=== PATIENT | female | born 1990 | race Caucasian/White ===

== ENCOUNTER → 2017-01-24 | Outpatient (CLI) | payer OTHER ==
--- NOTE | 2017-01-24 17:27 | Diagnostic Imaging Report ---
INDICATION: survey. TECHNIQUE: Multiple real-time grayscale images were obtained over the gravid uterus. COMPARISON: None. FINDINGS: Amniotic fluid volume is appropriate. Placenta is located along the left lateral aspect of the uterus without evidence of previa. cardiac motion measured 135 beats per minute. The intracranial contents appear unremarkable without evidence of ventriculomegaly. Four-chamber view of the heart is unremarkable. Stomach bubble is demonstrated. There is a normal cord insertion. There is no evidence of hydronephrosis. Urinary bladder is unremarkable. There is a three-vessel cord. The limited views of the spine appear unremarkable, but there is incomplete assessment of the spine due to positioning. IMPRESSION: 1. Single live intrauterine gestation estimated at 19 weeks 6 days gestational age based on today's measurements. This correlates with prior sonogram of December 18, 2015 demonstrating appropriate interval growth. Cardiac motion is normal. Amniotic fluid is normal. Today's survey demonstrates no anatomic abnormality, though there was a somewhat limited assessment of the spine. Biometrical measurements are as follows: Biparietal 4.6 cm, age 20 weeks 0 days. Head circumference 17.2 cm, age 19 weeks 6 days. Abdominal circumference 15.2 cm, age 20 weeks 3 days. Femur length 3.0 cm, age 19 weeks 1 days. Sonographic estimate age: 19 weeks 6 days. Sonographic estimated date of delivery: 06/14/16. Estimated Weight: 313 gm (+/- 46 gm). LMP percentile: 41%. heart rate: 135 beats per minute. number: 1 of 1. Dictated by: Dictated on workstation # [id number]
== END ==
LOC: RAD 09:45
PROVIDERS: ATTEND Obstetrics & Gynecology
DX: Z36 Encounter for antenatal screening of mother (principal); Z3A.19 19 weeks gestation of pregnancy
CPT/HCPCS: 76805

== ENCOUNTER → 2017-05-21 | Outpatient (CLI) | payer OTHER ==
--- NOTE | 2017-05-21 14:51 | Diagnostic Imaging Report ---
INDICATION: Small for gestational age. TECHNIQUE: Multiple Real-time grayscale images were obtained over the gravid uterus. COMPARISON: 04/04/2017. FINDINGS: The heart rate is 128 BPM. The placenta is posterior with no placenta previa. The total amniotic fluid index is 5.4 cm. The presentation is cephalic. The cervix is obscured by the head. The maternal adnexa are obscured by the gravid uterus. MEASUREMENTS: The growth parameters are: Biparietal diameter: 36 weeks and 6 days. Head circumference: 36 weeks and 2 days. Abdominal circumference: 35 weeks and 1 day. Femur length: 35 weeks and 3 days. These average at: 36 weeks and 0 days. This compares to 36 weeks and 4 days gestational age based on the ALEX of 06/14/2017 which matches the earliest ultrasound dating. IMPRESSION: Borderline oligohydramnios. The results were called to Laura at Dr. Butler's office regarding the low amniotic fluid index by the computer technologist who performed the exam. Dictated by: Dictated on workstation # [id number]
== END ==
LOC: RAD 09:52
PROVIDERS: ATTEND Obstetrics & Gynecology
DX: O36.5930 Maternal care for other known or suspected poor fetal growth, third trimester, not applicable or unspecified (principal); O26.843 Uterine size-date discrepancy, third trimester; Z3A.36 36 weeks gestation of pregnancy
CPT/HCPCS: 76816

== ENCOUNTER → 2017-05-23 | Outpatient (CLI) | payer OTHER ==
--- NOTE | 2017-05-23 12:50 | Diagnostic Imaging Report ---
INDICATION: O26.849 SIGNIFICANT DISCREPANCY COMPARISON: 05/21/2017. Biophysical Profile Score: Movement: 2 Breathin Tone: 2 Fluid: 2 Total: 12/31 Heart Rate: 139 BPM Presentation is cephalic. Placenta is located on the right and superiorly. JOHN is 8.8cm. The single largest vertical pocket is 3.1 cm. IMPRESSION: Normal Biophysical Profile Score. Dictated by: Dictated on workstation # [id number]
== END ==
LOC: RAD 08:57
PROVIDERS: ATTEND Obstetrics & Gynecology
DX: O26.843 Uterine size-date discrepancy, third trimester (principal)
CPT/HCPCS: 76819

== ENCOUNTER → 2018-12-30 | Outpatient (CLI) | payer OTHER ==
[~2018-12-30] MED LIST: ACHD5005 PO; DOCU100C37 PO; FERR325T18 PO; IBUP-1773 PO
--- NOTE | 2018-12-30 14:12 | Diagnostic Imaging Report ---
INDICATION: Abnormal AFP screening. TECHNIQUE: Multiple real-time grayscale images were obtained over the gravid uterus. COMPARISON: None. FINDINGS: There is a single live fetus in transverse presentation. heart rate was recorded at 146 beats per minute. Placenta is anterior and fundal. Amniotic fluid volume appears normal with an amniotic fluid index of 11.5 cm. No complicating features are seen. Biometrical measurements are as follows: Biparietal 5.81 cm, age 23 weeks 6 days. Head circumference 21.26 cm, age 23 weeks 3 days. Abdominal circumference 20.52 cm, age 25 weeks 1 days. Femur length 4.05 cm, age 23 weeks 1 days. Sonographic estimate age: 24 weeks 0 days. Sonographic estimated date of delivery: 04/21/19. Estimated Weight: 664 gm (+/- 97 gm). LMP percentile: 55%. heart rate: 146 beats per minute. number: 1 of 1. IMPRESSION: Single live IUP at 24 weeks 0 days gestational age. Estimated date of confinement sonographically is 04/21/2019. Dictated by: Dictated on workstation # [id number]
== END ==
LOC: RAD 10:20
PROVIDERS: ATTEND Obstetrics & Gynecology
DX: O28.0 Abnormal hematological finding on antenatal screening of mother (principal); Z3A.24 24 weeks gestation of pregnancy
CPT/HCPCS: 76805

== ENCOUNTER → 2019-01-27 | Outpatient (CLI) | payer OTHER ==
--- NOTE | 2019-01-27 12:21 | Diagnostic Imaging Report ---
INDICATION: Followup growth and amniotic fluid index. TECHNIQUE: Multiple Real-time grayscale images were obtained over the gravid uterus. COMPARISON: 12/30/2018. FINDINGS: The previous OB ultrasound exam of 12/30/2018 noted a single live fetus at approximately 24 weeks gestation. On this study, the fetus is again evident. The fetus is cephalic in presentation. heart motion was noted and a rate of 138 BPM was recorded. A complete survey was not obtained but there were no obvious abnormality identified. The placenta is anterior and there is no previa. The amniotic fluid index is 13.05 (normal 8 to 22 cm). The growth parameters are fairly uniform and have progressed as expected since the prior exam. The cervix was identified and measures 3.8 cm in length. Biometrical measurements are as follows: Biparietal 7.08 cm, age 28 weeks 4 days. Head circumference 26.01 cm, age 28 weeks 2 days. Abdominal circumference 24.26 cm, age 28 weeks 4 days. Femur length 5.02 cm, age 27 weeks 0 days. Sonographic estimate age: 28 weeks 1 days. Sonographic estimated date of delivery: 04/20/2019. Estimated Weight: 1156 gm (+/- 169 gm). LMP percentile: 42%. heart rate: 138 beats per minute. number: 1 of 1. IMPRESSION: 1. There is a single live fetus of approximately 28 weeks gestation plus/minus 2 weeks. The EDC remains 04/21/2019. 2. There are no abnormalities identified. 3. The growth parameters have progressed as expected since the prior exam. 4. The amniotic fluid is within normal limits. Dictated by: Dictated on workstation # [id number]
== END ==
LOC: RAD 09:59
PROVIDERS: ATTEND Obstetrics & Gynecology
DX: Z34.92 Encounter for supervision of normal pregnancy, unspecified, second trimester (principal); Z3A.28 28 weeks gestation of pregnancy
CPT/HCPCS: 76816

== ENCOUNTER → 2019-02-24 | Outpatient (CLI) | payer OTHER ==
--- NOTE | 2019-02-24 12:34 | Diagnostic Imaging Report ---
INDICATION: growth, abnormal AFP. TECHNIQUE: Multiple real-time grayscale images were obtained over the gravid uterus. COMPARISON: 12/30/2018 and 01/27/2019. FINDINGS: The prior OB ultrasound exam of 01/27/2019 noted a single live fetus of approximately 20 weeks gestation, +/- 2 weeks. On this study, the fetus is again visualized. The fetus is cephalic in presentation. heart motion was noted, and a rate of 133 BPM was recorded. There were no abnormalities identified, although the intracranial contents and the spine were not optimally visualized. The previous exam failed to show any sign of any abnormalities either. The placenta is anterior, and there is no previa. The amniotic fluid index is 13.5. The cervix was identified and measures 4.3 cm in length. The growth parameters are fairly uniform and have progressed as expected since the prior exam. IMPRESSION: 1. There is a single live fetus of approximately 31 weeks 6 days gestation, +/- 1 week. The EDC remains April 21, 2019. 2. There were no abnormalities identified. The intracranial contents of the spine were not optimally visualized, however. 3. The growth parameters have progressed as expected since the prior exam. Biometrical measurements are as follows: Biparietal 7.87 cm, age 31 weeks 5 days. Head circumference 28.79 cm, age 31 weeks 5 days. Abdominal circumference 27.61 cm, age 31 weeks 5 days. Femur length 6.12 cm, age 31 weeks 6 days. Sonographic estimate age: 31 weeks 6 days. Sonographic estimated date of delivery: 04/22/2019. Estimated Weight: 1819 gm (+/- 266 gm). LMP percentile: 33%. heart rate: 133 beats per minute. number: 1 of 1. Dictated by: Dictated on workstation # [id number]
== END ==
LOC: RAD 09:56
PROVIDERS: ATTEND Obstetrics & Gynecology
DX: Z34.93 Encounter for supervision of normal pregnancy, unspecified, third trimester (principal); Z3A.31 31 weeks gestation of pregnancy
CPT/HCPCS: 76816

== ENCOUNTER → 2019-03-25 | Outpatient (CLI) | payer OTHER ==
[~2019-03-25] MED LIST changes: +ACET-78 PO; +DOCU-143 PO; +IBUP-844 PO; +LORA10TA76 PO; +OXC5T PO; +PREN-37 PO
--- NOTE | 2019-03-25 13:22 | Diagnostic Imaging Report ---
INDICATION: To assess growth. FINDINGS: Biophysical profile is a normal 8 out of 8. Walker viable IUP is in cephalic position and measured 36 week 2 days. The placenta is anterior with no abruption or previa. Amniotic fluid volume within normal limits. IMPRESSION: Normal 8 out of 8 biophysical profile measuring 36 week 2 days, sonographic date of confinement 04/20/2019. TECHNIQUE: Multiple real-time grayscale images were obtained over the gravid uterus. COMPARISON: None FINDINGS: Biometrical measurements are as follows: Biparietal cm, age weeks days. Head circumference cm, age weeks days. Abdominal circumference cm, age weeks days. Femur length cm, age weeks days. Sonographic estimate age: weeks days. Sonographic estimated date of delivery: . Estimated Weight: gm (+/- gm). LMP percentile: %. heart rate: beats per minute. number: of . Dictated by: Dictated on workstation # [id number]
== END ==
LOC: RAD 11:56
PROVIDERS: ATTEND Obstetrics & Gynecology
DX: O28.0 Abnormal hematological finding on antenatal screening of mother (principal); Z3A.36 36 weeks gestation of pregnancy
CPT/HCPCS: 76805; 76819

== ENCOUNTER 2019-04-13 01:02 | Inpatient (IN) | payer OTHER ==
[~2019-04-13] VITALS: Ht 165.1 cm; Wt 61.4 kg
[2019-04-13] VITALS (19 sets, daily range): BP systolic 100–126; BP diastolic 53–80
[~2019-04-13 01:02] MED LIST changes: -ACET-78 PO; -DOCU-143 PO; -IBUP-844 PO; -LORA10TA76 PO; -OXC5T PO; -PREN-37 PO
--- NOTE | 2019-04-13 08:10 | NUR ---
Arrived to unit ambulates self for induction of labor. wt obtained and to room 319. Gowned and urine sample obtained. To bed and monitors on. oriented to room, call light and surroundings. Plan of care reviewed with pt .
[2019-04-13] MEDS ORDERED: D5 LR IV SOLUTION 1,000 ML IV ONE (08:44)
[2019-04-13] MEDS ORDERED: MINERAL OIL CONCENTRATE 99.9% 15 ML UDC TOP PRN (08:45)
[2019-04-13] MEDS ORDERED: MISOPROSTOL 100 MCG (CYTOTEC) TAB PO ONE (09:15)
[2019-04-13] MEDS: D5 LR IV SOLUTION 1,000 ML IV SCH ×2 (09:23→17:08)
[2019-04-13 09:26] LABS: BASOPHILS % (AUTO) 0 % (0-10); EOSINOPHILS # (AUTO) 0.2 10^3/uL (0.0-0.3); EOSINOPHILS % (AUTO) 3 % (0-10); HEMATOCRIT 34 % (35-52); HEMOGLOBIN 10.9 G/DL (11.5-16.0); LYMPHOCYTES % (AUTO) 27 % (12-44); MEAN CORPUSCULAR HEMOGLOBIN 29 PG (25-34); MEAN CORPUSCULAR HGB CONC 32 G/DL (32-36); MEAN CORPUSCULAR VOLUME 88 FL (80-99); MEAN PLATELET VOLUME 9.5 FL (7.4-10.4); MONOCYTES # (AUTO) 0.5 X 10^3 (0.0-1.0); MONOCYTES % (AUTO) 7 % (0-12); NEUTROPHILS # (AUTO) 4.6 X 10^3 (1.8-7.8); NEUTROPHILS % (AUTO) 63 % (42-75); PLATELET COUNT 193 10^3/uL (130-400); RED CELL DISTRIBUTION WIDTH 14.6 % (10.0-14.5); WHITE BLOOD COUNT 7.3 10^3/uL (4.3-11.0)
[2019-04-13 09:30] LABS: BILIRUBIN,URINE NEGATIVE (NEGATIVE); CLARITY,URINE CLEAR; COLOR,URINE YELLOW; GLUCOSE, URINE (UA) NEGATIVE (NEGATIVE); KETONES,URINE NEGATIVE (NEGATIVE); LEUKOCYTE ESTERASE ,URINE TRACE (NEGATIVE); NITRITE,URINE NEGATIVE (NEGATIVE); PROTEIN,URINE NEGATIVE (NEGATIVE)
[2019-04-13 09:51] LABS: BACTERIA,URINE TRACE /HPF; WBC,URINE RARE /HPF
[2019-04-13] MEDS ORDERED: BUTORPHANOL INJ 2 MG/ML (STADOL) VIAL IV PRN (11:45)
[2019-04-13] MEDS ORDERED: DOCU-143 PO (12:33)
[2019-04-13] MEDS ORDERED: PREN-37 PO (12:33)
[2019-04-13] MEDS ORDERED: LORA10TA76 PO (12:33)
[2019-04-13] MEDS ORDERED: OXYTOCIN/NORMAL SALINE 500 ML IV ONE ×2 (13:36→15:02)
[2019-04-13] MEDS ORDERED: CATHETER FLUSH 10 ML SYR IV SCH ×2 (14:00→22:00)
[2019-04-13] MEDS ORDERED: LIDOCAINE/EPI 2% 1:200,00 (XYLOCAINE) 10 ML VIAL ONE (14:11)
--- NOTE | 2019-04-13 14:22 | NUR ---
local to perineum per dr mazariegos. 1426 cord detached per placenta, manual extraction of placenta per dr mazariegos at this time. 1429 placental manual delivery and pitocin increased to 999ml/hr at this time. 1440 repair of perineal tear started per dr mazariegos. ffu/0 with moderate rubra noted, no clots expressed.
--- NOTE | 2019-04-13 14:55 | NUR ---
ffu/0 with moderate rubra noted, no clots expressed, ice pack to perineum vss. pt assisted from foot pedals to sf position and plan of care reviewed with pt regarding recovery period 1510 ffu/0 with lt-mod rubra noted, no clots expressed. 1526 vss ffu/0 with lt-mod rubra noted, no clots expressed. 1540 vss ffu/0 with lt-mod rubra noted, no clots expressed.
--- NOTE | 2019-04-13 16:10 | NUR ---
ffu/0 with lt-mod rubra noted, no clots expressed. vss.
--- NOTE | 2019-04-13 16:49 | OB Labor & Delivery Record ---
Vag Delivery Note Vag Delivery Note Date of Delivery: 04/13/19 Preoperative Diagnosis: Elva Sanchez is a (28 /Para / ,Gestational Age (wks)39with [] Postoperative Diagnosis: Same Surgeon: FREDRICK STEINER Truckload Checker: [] Anesthesia: [] Delivery Type: [] Findings: [] Viable [] , apgars [], weight [] Lacerations: Intact placenta with 3 vessel cord. No nuchal cord, body cord or shoulder dystocia Cytotec 800 mcg placed for hemorrhage prophylaxis Estimated Blood Loss: [] ml Complications: None Condition: Stable Description of Procedure: The patient is a 28 year old female who presented []. She was admitted and informed consent was obtained. Her labor course was remarkable for [] She p rogressed to complete dilatation and began to push. She was then set up for delivery. The infant's head was delivered atraumatically in the [] position. The shoulders and remainder of the 's body were then delivered without difficulty. Upon delivery, the head was held below the level of the perineum and the mouth and nares were bulb suctioned. The cord was doubly clamped and cut and the was handed off to the pediatric staff. An intact placenta with 3-vessel cord delivered via [place] and there was found to be minimal bleeding.~ Vigorous fundal massage was performed and the fundus was found to be firm. IV oxytocin was given. Examination of the vagina and perineum revealed a [] laceration repaired in the usual fashion with 3-0 vicryl suture. Following the repair, sponge, instrument and needle counts were correct. Mom and baby were both in stable condition in the labor suite. Vitals - Labs Vital Signs - I&O Vital Signs Date Time Temp Pulse Resp B/P (MAP) Pulse Ox O2 Delivery O2 Flow Rate FiO2 04/13/19 14:55 36.7 85 18 110/59 (76) Room Air 04/13/19 14:40 96 18 107/54 (71) Room Air 04/13/19 14:25 36.2 104 18 107/57 (74) Room Air 04/13/19 14:10 Room Air 04/13/19 14:00 Room Air 04/13/19 13:45 88 18 97 Room Air 04/13/19 13:30 77 18 126/75 (92) Room Air 04/13/19 13:15 77 18 125/80 (95) Room Air 04/13/19 13:05 Room Air 04/13/19 13:00 83 16 116/76 (89) Room Air 04/13/19 12:30 96 16 113/76 (88) Room Air 04/13/19 12:00 90 16 115/56 (75) Room Air 04/13/19 11:20 36.8 97 16 118/66 (83) Room Air 04/13/19 10:20 108 16 102/66 (78) Room Air 04/13/19 09:15 96 16 108/67 (81) 93 Room Air 04/13/19 08:30 36.3 106 16 100 Room Air Labs Laboratory Tests 04/13/19 09:05: White Blood Count 7.3, Red Blood Count 3.82L, Hemoglobin 10.9L, Hematocrit 34L, Mean Corpuscular Volume 88, Mean Corpuscular Hemoglobin 29, Mean Corpuscular Hemoglobin Concent 32, Red Cell Distribution Width 14.6H, Platelet Count 193, Mean Platelet Volume 9.5, Neutrophils (%) (Auto) 63, Lymphocytes (%) (Auto) 27, Monocytes (%) (Auto) 7, Eosinophils (%) (Auto) 3, Basophils (%) (Auto) 0, Neutrophils # (Auto) 4.6, Lymphocytes # (Auto) 2.0, Monocytes # (Auto) 0.5, E osinophils # (Auto) 0.2, Basophils # (Auto) 0.0, Urine Color YELLOW, Urine Clarity CLEAR, Urine pH 7.0, Urine Specific [place] <=1.005, Urine Protein NEGATIVE, Urine Glucose (UA) NEGATIVE, Urine Ketones NEGATIVE, Urine Nitrite NEGATIVE, Urine Bilirubin NEGATIVE, Urine Urobilinogen 0.2, Urine Leukocyte Esterase TRACE, Urine RBC (Auto) NEGATIVE, Urine RBC NONE, Urine WBC RARE, Urine Squamous Epithelial Cells 2-5, Urine Crystals NONE, Urine Bacteria TRACE, Urine Casts NONE, Urine Mucus NEGATIVE, Urine Culture Indicated NO FREDRICK STEINER DO Apr 13, 2019 16:49 POS
[2019-04-13] MEDS ORDERED: BENZOCAINE/MENTHOL (DERMOPLAST) 56 ML CAN TP ONE (16:57)
[2019-04-13] MEDS ORDERED: WITCH HAZEL(TUCKS) 40 EA JAR TOP PRN (17:00)
[2019-04-13] MEDS ORDERED: TETANUS,DIPTH,PERTUSS P/F (BOOSTRIX) 0.5 ML VIAL IM ONE (17:00)
[2019-04-13] MEDS ORDERED: BENZOCAINE/MENTHOL (DERMOPLAST) 56 ML CAN TP PRN (17:00)
[2019-04-13] MEDS ORDERED: MEASLES,MUMPS,RUBELLA 1 EA INJ SQ ONE (17:00)
--- NOTE | 2019-04-13 17:00 | NUR ---
PERICARE, PAD CHANGED, UNDERWEAR ON. aSSISTED TO WHEELCHAIR AND TRANSFERRED TO ROOM 309. TO BATHROOM, VOID AND PERICARE. TO BED. ORIENTED TO ROOM, CALL LIGHT AND SURROUNDINGS. BED CONTROLS EXPLAINED, INFO PACKET DISCUSSED. FRESH ICE PACK TO PERINEUM
[2019-04-13] MEDS: IBUPROFEN 600 MG (MOTRIN) TAB PO SCH (17:18)
[2019-04-13] MEDS: ACETAMINOPHEN 500 MG TAB (TYLENOL) PO SCH (22:11)
[2019-04-13] MEDS: DOCUSATE SODIUM 100 MG (COLACE) CAP PO SCH (22:11)
[2019-04-14 00:51] VITALS: BP 98/62
[2019-04-14] MEDS: IBUPROFEN 600 MG (MOTRIN) TAB PO SCH ×4 (00:52→18:24)
[2019-04-14 05:28] LABS: BASOPHILS % (AUTO) 0 % (0-10); EOSINOPHILS # (AUTO) 0.1 10^3/uL (0.0-0.3); EOSINOPHILS % (AUTO) 1 % (0-10); HEMATOCRIT 28 % (35-52); HEMOGLOBIN 8.8 G/DL (11.5-16.0); LYMPHOCYTES # (AUTO) 2.6 X 10^3 (1.0-4.0); LYMPHOCYTES % (AUTO) 23 % (12-44); MEAN CORPUSCULAR HEMOGLOBIN 28 PG (25-34); MEAN CORPUSCULAR HGB CONC 32 G/DL (32-36); MEAN CORPUSCULAR VOLUME 89 FL (80-99); MEAN PLATELET VOLUME 9.1 FL (7.4-10.4); MONOCYTES # (AUTO) 0.9 X 10^3 (0.0-1.0); MONOCYTES % (AUTO) 8 % (0-12); NEUTROPHILS # (AUTO) 7.6 X 10^3 (1.8-7.8); NEUTROPHILS % (AUTO) 68 % (42-75); PLATELET COUNT 179 10^3/uL (130-400); RED CELL DISTRIBUTION WIDTH 14.6 % (10.0-14.5); WHITE BLOOD COUNT 11.3 10^3/uL (4.3-11.0)
[2019-04-14 05:31] VITALS: BP 89/58
[2019-04-14] MEDS: ACETAMINOPHEN 500 MG TAB (TYLENOL) PO SCH ×2 (05:32→15:54)
[2019-04-14 09:10] VITALS: BP 96/58
[2019-04-14] MEDS ORDERED: DOCU100C37 PO (09:11)
[2019-04-14] MEDS ORDERED: OXC5T PO (09:11)
[2019-04-14] MEDS ORDERED: ACET-77 PO (09:11)
[2019-04-14] MEDS ORDERED: IBUP-844 PO (09:11)
--- NOTE | 2019-04-14 09:12 | Discharge Inst-Women's Service ---
Discharge Inst-Women's Serv Depart Medication/Instructions New, Converted or Re-Newed RX: RX on Chart Final Diagnosis induction, social third degree laceration AFP abnormal Consults/Follow Up Additional Follow Up: Yes Activity Activity: Activity as Tolerated Driving Instructions: You May Drive NO SMOKING: NO SMOKING Nothing Inside Vagina: No Douching, No [place], No Tampons Diet Discharge Diet: No Restrictions Symptoms to Report to : Swelling Increased, Bleeding Excessive, Pain Increased, Fever Over 101 Degrees F, Vaginal Bleeding Increase, Cramps in Feet or Legs, Vaginal Discharge Foul For Any Problems or Questions: Contact Your Physician Skin/Wound Care Infection Signs and Symptoms: Increased Redness, Foul Odor of Wound, Increased Drainage, Skin Itchy or Has a Rash, Increased Swelling, Temperature Above 101 F Stitches/[place]/Dermabond: Dermabond Bathing Instructions: FREDRICK Faith DO Apr 14, 2019 09:12 POS
[2019-04-14] MEDS: DOCUSATE SODIUM 100 MG (COLACE) CAP PO SCH ×2 (09:39→21:40)
--- NOTE | 2019-04-14 15:40 | NUR ---
ambulating in halls
[2019-04-14 15:56] VITALS: BP 110/57
[2019-04-14 22:00] VITALS: BP 100/55
[2019-04-15] MEDS: IBUPROFEN 600 MG (MOTRIN) TAB PO SCH ×2 (01:19→08:00)
[2019-04-15 01:20] VITALS: BP 98/69
[2019-04-15] MEDS: ACETAMINOPHEN 500 MG TAB (TYLENOL) PO SCH ×2 (01:20→08:00)
[2019-04-15 08:00] VITALS: BP 93/55
[2019-04-15] MEDS: DOCUSATE SODIUM 100 MG (COLACE) CAP PO SCH (08:00)
== END 2019-04-15 12:30 | disposition home or self-care (01) | DRG 768 ==
LOC: LDRP 08:10
PROVIDERS: ADMIT Obstetrics & Gynecology; ATTEND Obstetrics & Gynecology
PROC: 10E0XZZ Delivery of Products of Conception, External Approach (ICD-10-PCS; principal; 2019-04-13)
PROC: 0DQR0ZZ Repair Anal Sphincter, Open Approach (ICD-10-PCS; 2019-04-13)
DX: O70.20 Third degree perineal laceration during delivery, unspecified (principal); Z37.0 Single live birth; Z3A.39 39 weeks gestation of pregnancy
CPT/HCPCS: 36415; 81000; 85025; 86850; 86900; 86901

== ENCOUNTER → 2020-01-25 | Outpatient (CLI) | payer OTHER ==
[~2020-01-25] MED LIST changes: +ACET-78 PO; +DOCU-143 PO; +IBUP-844 PO; +LORA10TA76 PO; +OXC5T PO; +PREN-37 PO
--- NOTE | 2020-01-25 13:00 | Diagnostic Imaging Report ---
PROCEDURE: US Thyroid. TECHNIQUE: Multiple real-time grayscale images were obtained of the thyroid in various projections. INDICATION: Abnormal thyroid lab values FINDINGS: Right lobe of thyroid measures 4.3 x 1.4 cm, left lobe measures 3.3 x 0.8 x 1.4 cm. Isthmus measures 0.2 cm. There is a 2 mm solid nodule in the left which is echogenic. No other discrete solid or cystic masses are appreciated. IMPRESSION: Benign-appearing 2 mm echogenic nodule in the left lobe of thyroid otherwise unremarkable. Dictated by: Dictated on workstation # [id number]
== END ==
LOC: RAD 10:50
PROVIDERS: ATTEND Family Medicine
DX: E05.30 Thyrotoxicosis from ectopic thyroid tissue without thyrotoxic crisis or storm (principal); E04.1 Nontoxic single thyroid nodule; R94.6 Abnormal results of thyroid function studies
CPT/HCPCS: 76536

== ENCOUNTER → 2021-06-08 | Outpatient (CLI) | payer OTHER | LOC: LABNPT 07:00 | PROVIDERS: ATTEND Family Medicine | DX: U07.1 COVID-19 (principal) | CPT/HCPCS: 87635 ==

== ENCOUNTER → 2021-08-09 | Outpatient (CLI) | payer OTHER ==
--- NOTE | 2021-08-09 12:25 | Diagnostic Imaging Report ---
INDICATION: survey. TECHNIQUE: Multiple real-time grayscale images were obtained over the gravid uterus. COMPARISON: None. FINDINGS: There is a single live fetus in a transverse presentation. Placenta is posterior and low lying. heart rate was recorded at 149 BPM. Amniotic fluid volume appears normal. Cervical length is 6.5 cm. kidneys, bladder and stomach are unremarkable. brain is unremarkable. There is a four-chamber heart. There is a three-vessel cord with normal insertion. spine images are somewhat limited due to position. Biometrical measurements are as follows: Biparietal 4.01 cm, age 18 weeks 2 days. Head circumference 15.00 cm, age 18 weeks 1 days. Abdominal circumference 12.75 cm, age 18 weeks 3 days. Femur length 2.44 cm, age 17 weeks 3 days. Sonographic estimate age: 18 weeks 1 days. Sonographic estimated date of delivery: 01/09/2022. Estimated Weight: 215 gm (+/- 32 gm). LMP percentile: 39%. heart rate: 149 beats per minute. number: 1 of 1. IMPRESSION: Single live IUP at 18 weeks 1 day gestational age with estimated date of confinement sonographically of 01/09/2022. Note is made of a low-lying posterior placenta. survey is unremarkable, although spine evaluation was somewhat limited due to position. Dictated by: Dictated on workstation # [id number]
== END ==
LOC: RAD 10:30
PROVIDERS: ATTEND Obstetrics & Gynecology
DX: Z34.92 Encounter for supervision of normal pregnancy, unspecified, second trimester (principal); Z3A.18 18 weeks gestation of pregnancy
CPT/HCPCS: 76805

== ENCOUNTER → 2021-08-29 | Outpatient (CLI) | payer OTHER ==
--- NOTE | 2021-08-29 16:47 | Diagnostic Imaging Report ---
INDICATION: Follow-up anatomy not seen on prior examination and low lying placenta. TECHNIQUE: Multiple real-time grayscale images were obtained over the gravid uterus. COMPARISON: 08/09/2021. FINDINGS: Placenta is fundal and posterior in position. The inferior placenta lies 2.5 cm from the internal cervical os. Cervix is closed and measures 3.8 cm. spine is visualized and normal. The lip/nose is also normal. heart rate is 160 bpm. IMPRESSION: 1. Posterior placenta has tip 2.5 cm above the internal cervical os. 2. The spine and lips/nose are normal. Dictated by: Dictated on workstation # [id number]
== END ==
LOC: RAD 13:30
PROVIDERS: ATTEND Obstetrics & Gynecology
DX: O44.52 Low lying placenta with hemorrhage, second trimester (principal); Z3A.00 Weeks of gestation of pregnancy not specified
CPT/HCPCS: 76816

== ENCOUNTER → 2021-09-27 | Outpatient (CLI) | payer OTHER ==
[2021-09-27 12:15] LABS: BASOPHILS % (AUTO) 0 % (0-10); EOSINOPHILS # (AUTO) 0.1 10^3/uL (0.0-0.3); EOSINOPHILS % (AUTO) 2 % (0-10); HEMATOCRIT 32 % (35-52); HEMOGLOBIN 10.5 g/dL (11.5-16.0); LYMPHOCYTES # (AUTO) 1.7 10^3/uL (1.0-4.0); LYMPHOCYTES % (AUTO) 23 % (12-44); MEAN CORPUSCULAR HEMOGLOBIN 31 pg (25-34); MEAN CORPUSCULAR HGB CONC 33 g/dL (32-36); MEAN CORPUSCULAR VOLUME 95 fL (80-99); MEAN PLATELET VOLUME 9.1 fL (9.0-12.2); MONOCYTES # (AUTO) 0.5 10^3/uL (0.0-1.0); MONOCYTES % (AUTO) 7 % (0-12); NEUTROPHILS # (AUTO) 4.8 10^3/uL (1.8-7.8); NEUTROPHILS % (AUTO) 67 % (42-75); PLATELET COUNT 253 10^3/uL (130-400); WHITE BLOOD COUNT 7.2 10^3/uL (4.3-11.0)
== END ==
LOC: LABNPT 12:02
PROVIDERS: ATTEND Obstetrics & Gynecology
DX: Z34.02 Encounter for supervision of normal first pregnancy, second trimester (principal); Z3A.00 Weeks of gestation of pregnancy not specified
CPT/HCPCS: 82950; 85025

== ENCOUNTER 2022-01-04 22:03 | Outpatient (CLI) | payer OTHER ==
[~2022-01-04] VITALS: Ht 157.5 cm; Wt 64.4 kg
[2022-01-04 22:30] VITALS: BP 140/80
--- NOTE | 2022-01-07 08:10 | Physician Query-Final Dx ---
,01/07/22 0810: Clinic Account Progress/Dx Physician Query: Please give diagnosis Please include # weeks gestation Date of Service Jan 04, 2022 at 22:03 KATE KANG MD 01/08/22 1009: Clinic Account Progress/Dx DIAGNOSIS: Diagnosis 39 weeks gestation with false labor ,MayJan 07, 2022 08:10 KATE KANG MD Jan 08, 2022 10:09
== END 2022-01-04 23:30 ==
LOC: WSo 22:03 → LDRP 22:04 → WSo 23:30
PROVIDERS: ATTEND Obstetrics & Gynecology
DX: O47.1 False labor at or after 37 completed weeks of gestation (principal); Z3A.39 39 weeks gestation of pregnancy
CPT/HCPCS: 99213

== ENCOUNTER 2022-01-07 07:00 | Inpatient (IN) | payer OTHER ==
[~2022-01-07] VITALS: Ht 157.4 cm; Wt 64.0 kg
[2022-01-07] VITALS (28 sets, daily range): BP systolic 98–142; BP diastolic 56–80
[2022-01-07] MEDS ORDERED: ceFAZolin INJECTION 1,000 MG in NS (IVPB) 50 ML IV SCH (08:00)
[2022-01-07] MEDS ORDERED: D5 LR IV SOLUTION 1,000 ML IV ONE (08:38)
[2022-01-07] MEDS ORDERED: ceFAZolin INJECTION 1,000 MG ONE (08:38)
--- NOTE | 2022-01-07 08:38 | History & Physical-OB ---
OB - Chief Complaint & HPI Date/Time Date of Admission: Date of Admission: Jan 07, 2022 at 07:27 Date seen by a Provider: Jan 07, 2022 Time Seen by a Provider: 08:35 Chief Complaint/History OB-Reason for Admission/Chief: Onset of Labor Hx : 4 Hx Para: 2 Expected Date of Delivery: Jan 10, 2022 Gestational Age in Weeks: 39 Gestational Age in Days: 4 Admission Nurse Assessment Rev: Yes History of Labs GBS pos Allergies and Home Medications Allergies Coded Allergies: amoxicillin (Verified Allergy, Mild, 05/30/17) hives codeine (Verified Allergy, Mild, 05/30/17) sulfamethoxazole (Verified Allergy, Mild, 05/30/17) rash trimethoprim (Verified Allergy, Mild, 05/30/17) rash Patient Home Medication List Home Medication List Reviewed: Yes Acetaminophen (Acetaminophen) 500 Mg Tablet, 1,000 MG PO Q8HR Prescribed by: FREDRICK STEINER on 04/14/19910 Docusate Sodium (Colace) 100 Mg Capsule, 100 MG PO BID, (Reported) Entered as Reported by: RADHA CARRERA on 04/13/19 1233 Docusate Sodium (Docusate Sodium) 100 Mg Capsule, 100 MG PO BID Prescribed by: FREDRICK STEINER on 04/14/19910 Loratadine (Claritin) 10 Mg Tablet, 10 MG PO DAILY, (Reported) Entered as Reported by: RADHA CARRERA on 04/13/19 1233 Vit/Iron Fumarate/FA ( Tablet) 1 Each Tablet, 1 EACH PO DAILY, (Reported) Entered as Reported by: RADHA CARRERA on 04/13/19 1233 Discontinued Medications Ibuprofen (Ibu) 600 Mg Tablet, 600 MG PO Q6HR Discontinued Reason: No Longer Taking Prescribed by: FREDRICK STEINER on 04/14/19910 Oxycodone Hcl (Oxycodone IR) 5 Mg Tab, 5 MG PO Q4HR Discontinued Reason: No Longer Taking Prescribed by: FREDRICK STEINER on 04/14/19 09 OB - History Hx of Present Care: Yes Ultrasounds: Normal mid trimester US Obstetrical Complications: None Medical Complications: None Delivery History Hx Dystocia: No Adverse Rxn to Tranfusion: No (n/a) Patient Past Medical History [place] Social History/Family History 2nd Hand Smoke Exposure: No Immunizations Hepatitis A: Yes Hepatitis B: Yes OB - Admission Exam Physical Exam HEENT: NCAT Heart: Rhythm Normal Lungs: Clear Abdomen: Gravid Extremities: Normal Reflexes: Normal Cervical Dilatation: 3cm Effacement: 75% Station: -1 Membranes: Intact Heart Rate: 130's Accelerations: Accelerations Present Decelerations: No Decelerations Short Term Variability: Present Natural Science Manager Variability: Average (6-25) Contractions on Admission: 6-10 Minutes Apart Intensity: Mild OB - Assessment/Plan/Diagnosis Assessment Assessment: induction of labor Admission Dx 31 yo @ 39 weeks Elective IOL GBS pos Admission Status: Inpatient Order (span 2 midnights) Reason for Inpatient Admission: IOL at 39 weks Plan Plan: Induction Induction Method: HAILE SIDHU DO Jan 07, 2022 08:37
[2022-01-07] MEDS ORDERED: NS (IVPB) 50 ML ONE (08:39)
[2022-01-07 09:58] LABS: BASOPHILS % (AUTO) 1 % (0-10); EOSINOPHILS # (AUTO) 0.2 10^3/uL (0.0-0.3); EOSINOPHILS % (AUTO) 3 % (0-10); HEMATOCRIT 34 % (35-52); HEMOGLOBIN 11.2 g/dL (11.5-16.0); LYMPHOCYTES % (AUTO) 27 % (12-44); MEAN CORPUSCULAR HEMOGLOBIN 30 pg (25-34); MEAN CORPUSCULAR HGB CONC 33 g/dL (32-36); MEAN CORPUSCULAR VOLUME 91 fL (80-99); MEAN PLATELET VOLUME 10.2 fL (9.0-12.2); MONOCYTES # (AUTO) 0.6 10^3/uL (0.0-1.0); MONOCYTES % (AUTO) 9 % (0-12); NEUTROPHILS # (AUTO) 4.3 10^3/uL (1.8-7.8); NEUTROPHILS % (AUTO) 59 % (42-75); PLATELET COUNT 205 10^3/uL (130-400); WHITE BLOOD COUNT 7.3 10^3/uL (4.3-11.0)
[2022-01-07 09:59] LABS: BILIRUBIN,URINE NEGATIVE (NEGATIVE); CLARITY,URINE CLEAR; COLOR,URINE YELLOW; GLUCOSE, URINE (UA) NEGATIVE (NEGATIVE); KETONES,URINE NEGATIVE (NEGATIVE); LEUKOCYTE ESTERASE ,URINE 1+ (NEGATIVE); NITRITE,URINE NEGATIVE (NEGATIVE); PROTEIN,URINE NEGATIVE (NEGATIVE)
[2022-01-07] MEDS ORDERED: MINERAL OIL 30 ML UDC TOP PRN (10:00)
[2022-01-07] MEDS ORDERED: OXYTOCIN PRE-MIX DRIP 500 ML IV SCH ×2 (10:00→13:30)
[2022-01-07] MEDS ORDERED: LIDOCAINE/EPI 2% 1:200,00 (XYLOCAINE) 10 ML VIAL INJ PRN (10:00)
[2022-01-07] MEDS ORDERED: D5 LR IV SOLUTION 1,000 ML IV SCH (10:00)
[2022-01-07 10:09] LABS: BACTERIA,URINE FEW /HPF; RBC,URINE RARE /HPF
[2022-01-07] MEDS ORDERED: HYDROmorphone 2 MG/ML VIAL (DILAUDID) ONE (11:44)
[2022-01-07] MEDS ORDERED: HYDROmorphone 2 MG/ML VIAL (DILAUDID) IV ONE (11:45)
[2022-01-07] MEDS ORDERED: LIDOCAINE/EPI 2% 1:200,00 (XYLOCAINE) 10 ML VIAL ONE (13:08)
[2022-01-07] MEDS: IBUPROFEN 600 MG (MOTRIN) TAB PO SCH ×2 (13:25→20:08)
--- NOTE | 2022-01-07 13:25 | OB Labor & Delivery Record ---
L&D History Date of Service Date of Service: Jan 07, 2022 History Expected Date of Delivery: Jan 10, 2022 Gestational Age in Weeks: 39 Hx : 4 Hx Para: 2 Complications Events: Routine care Operative Indications (Cesarea: N/A-Vaginal Delivery Intrapartal Events: None L&D Stage1 Stage One Onset of Labor - Date: Jan 07, 2022 Onset of Labor - Time: 13:22 Monitors and Tracing Monitor Mode: External Heart Rate: 135 Monitor Accelerations: Uniform Monitor Decelerations: None Correction Variability: Average (6-10) Short Term Variability: Present Presentation: Vertex Rupture of Membranes Spontaneous Ruture of Membrane: Yes Amniotic Membrane Rupture Time: 08:30 Amniotic Membrane Fluid Desc.: Clear Vaginal Bleeding Description: Normal Show Progress/Notes Patient admitted for elective IOL. AROM performed, max dose of pitocin 2 mu/min. She progressed to complete and +1 station with only 1 dose of dilaudid IV for pain. L&D Stage2 Stage Two Stage II Date: Jan 07, 2022 Monitors and Tracing Monitor Mode: External Monitor Accelerations: Uniform Monitor Decelerations: Variable Application Support Variability: Average (6-10) Short Term Variability: Present Position: Right Occiput Anterior Presentation: Vertex Cord Descript/Complications Cord Vessel Description: 3 Vessels Delivery Type Infant Delivery Method: Spontaneous Vaginal Episiotomy/Perineal Laceration Laceraction(s)/Extensions: Yes Episiotomy Description: 1st degree (1st degree perineal laceration repaired using 3-0 rapide in usual fashion) Condition of Infant Delivery 1 minute Comment: 9 5 minute Comment: 9 Notes Live male weight 8lbs Condition of Condition of : Living Exam: No Observed Abnormalities Resuscitation Resuscitation: N/A - Spontaneous Resp L&D Stage3 Stage Three Stage III Date: Jan 07, 2022 Pictocin Pitocin Administration Comment: 30 mu wide open after delivery of placenta Placenta Delivery Placenta Delivery: Spontaneous Delivery Summary Summary Estimated blood loss (mL): 350 Attending at delivery: Haile Polk DO Condition of Delivery Examined: Cervix Examined, Uterus Explored Post Hemorrhage: No Condition of Mother stable Condition of Infant (s) stable HAILE POLK DO Jan 07, 2022 13:25
[2022-01-07] MEDS ORDERED: IBUPROFEN 600 MG (MOTRIN) TAB PO ONE (13:26)
[2022-01-07] MEDS ORDERED: MEASLES,MUMPS,RUBELLA 1 EA INJ SQ ONE (13:30)
[2022-01-07] MEDS ORDERED: DIBUCAINE 1% OINTMENT 30 GM TUBE TOP PRN (13:30)
[2022-01-07] MEDS ORDERED: BENZOCAINE/MENTHOL (DERMOPLAST) 56 ML CAN TP PRN (13:30)
[2022-01-07] MEDS ORDERED: TETANUS,DIPTH,PERTUSS P/F (BOOSTRIX) 0.5 ML VIAL IM ONE (13:30)
[2022-01-07] MEDS ORDERED: WITCH HAZEL(TUCKS) 40 EA JAR TOP PRN (13:30)
[2022-01-07] MEDS ORDERED: NALOXONE 0.4 MG/ML 1 ML (NARCAN) VIAL IV PRN (13:30)
[2022-01-07] MEDS ORDERED: LIDOCAINE/EPI 2% 1:200,00 (XYLOCAINE) 10 ML VIAL INJ ONE (13:45)
[2022-01-07] MEDS ORDERED: CATHETER FLUSH 10 ML SYR IV SCH ×2 (14:00)
[2022-01-07] MEDS: DOCUSATE SODIUM 100 MG (COLACE) CAP PO SCH (20:08)
[2022-01-08] VITALS: BP 96/55
[2022-01-08] MEDS: IBUPROFEN 600 MG (MOTRIN) TAB PO SCH ×5 (01:15→20:45)
[2022-01-08 05:00] VITALS: BP 94/52
[2022-01-08 05:51] LABS: BASOPHILS % (AUTO) 0 % (0-10); EOSINOPHILS # (AUTO) 0.1 10^3/uL (0.0-0.3); EOSINOPHILS % (AUTO) 1 % (0-10); HEMATOCRIT 28 % (35-52); HEMOGLOBIN 9.2 g/dL (11.5-16.0); LYMPHOCYTES # (AUTO) 2.1 10^3/uL (1.0-4.0); LYMPHOCYTES % (AUTO) 21 % (12-44); MEAN CORPUSCULAR HEMOGLOBIN 30 pg (25-34); MEAN CORPUSCULAR HGB CONC 33 g/dL (32-36); MEAN CORPUSCULAR VOLUME 91 fL (80-99); MEAN PLATELET VOLUME 9.9 fL (9.0-12.2); MONOCYTES # (AUTO) 0.8 10^3/uL (0.0-1.0); MONOCYTES % (AUTO) 8 % (0-12); NEUTROPHILS # (AUTO) 6.7 10^3/uL (1.8-7.8); NEUTROPHILS % (AUTO) 69 % (42-75); PLATELET COUNT 171 10^3/uL (130-400); WHITE BLOOD COUNT 9.7 10^3/uL (4.3-11.0)
[2022-01-08] MEDS: FERROUS SULF 325 MG (IRON) TAB PO SCH (09:12)
[2022-01-08] MEDS: PRENATAL VITAMIN 1 EA TAB PO SCH (09:12)
[2022-01-08] MEDS: DOCUSATE SODIUM 100 MG (COLACE) CAP PO SCH ×2 (09:13→20:45)
[2022-01-08 09:15] VITALS: BP 125/70
--- NOTE | 2022-01-08 10:21 | Postpartum Progress Note ---
Note Note Day # 1 Subjective: Patient is without complaints. Ambulating, voiding. Tolerating a regular diet without nausea or vomiting. Normal lochia. Pain is well controlled with oral pain medications. Physical Exam: General - Alert and oriented, no apparent distress Abdomen - Soft, appropriately tender to palpation, non-distended, fundus firm at umbilicus Extremities - no edema, negative Everton's bilaterally Assessment: Post- day # 1, status post vaginal delivery. Recovering well, hemodynamically stable Acute blood loss anemia Plan: Routine care. Encourage breast feeding. Encourage ambulation. Ferrous sulfate supplementation. Plan for discharge tomorrow Vitals - Labs Vital Signs - I&O Vital Signs Date Time Temp Pulse Resp B/P (MAP) Pulse Ox O2 Delivery O2 Flow Rate FiO2 01/08/22 05:00 36.3 68 18 94/52 (66) 97 Room Air 01/08/22 00:00 36.6 87 18 96/55 (69) 98 Room Air 01/07/22 20:08 36.3 78 20 98/63 (75) 97 Room Air 01/07/22 16:02 80 20 105/57 (73) Room Air 01/07/22 15:47 78 20 106/61 (76) Room Air 01/07/22 15:32 77 20 102/58 (73) Room Air 01/07/22 15:17 71 20 109/65 (80) Room Air 01/07/22 15:02 74 20 107/62 (77) Room Air 01/07/22 14:48 91 20 110/62 (78) Room Air 01/07/22 14:30 76 20 109/56 (73) Room Air 01/07/22 14:00 88 20 121/69 (86) Room Air 01/07/22 13:45 77 83 121/71 (88) Room Air 01/07/22 13:30 144 83 124/74 (91) Room Air 01/07/22 13:15 97 83 142/58 (86) 100 Room Air 01/07/22 13:00 36.1 116 83 128/68 (88) 100 Room Air 01/07/22 12:45 65 83 124/74 (91) 100 Room Air 01/07/22 12:30 65 20 140/77 (98) 100 Room Air 01/07/22 12:15 70 20 128/76 (93) 100 Room Air 01/07/22 12:00 63 20 122/70 (87) 100 Room Air 01/07/22 11:45 75 20 126/79 (95) 100 Room Air 01/07/22 11:30 75 20 126/79 (95) 100 Room Air 01/07/22 11:15 75 20 126/71 (89) 100 Room Air 01/07/22 11:00 81 20 134/80 (98) 100 Room Air 01/07/22 10:45 81 20 115/74 (88) 100 Room Air 01/07/22 10:30 96 20 113/69 (84) 100 Room Air I & O 01/08/22 07:00 Intake Total 1600 ml Balance 1600 ml Labs Laboratory Tests 01/08/22 05:15: White Blood Count 9.7, Red Blood Count 3.08L, Hemoglobin 9.2L, Hematocrit 28L, Mean Corpuscular Volume 91, Mean Corpuscular Hemoglobin 30, Mean Corpuscular Hemoglobin Concent 33, Red Cell Distribution Width 13.7, Platelet Count 171, Mean Platelet Volume 9.9, Immature Granulocyte % (Auto) 1, Neutrophils (%) (Auto) 69, Lymphocytes (%) (Auto) 21, Monocytes (%) (Auto) 8, Eosinophils (%) (Auto) 1, Basophils (%) (Auto) 0, Neutrophils # (Auto) 6.7, Lymphocytes # (Auto) 2.1, Monocytes # (Auto) 0.8, Eosinophils # (Auto) 0.1, Basophils # (Auto) 0.0, Immature Granulocyte # (Auto) 0.1 RANI MARTINEZ APRN Jan 08, 2022 10:21
[2022-01-08 15:25] VITALS: BP 111/56
[2022-01-08 20:45] VITALS: BP 119/60
[2022-01-09 02:15] VITALS: BP 122/64
[2022-01-09] MEDS: IBUPROFEN 600 MG (MOTRIN) TAB PO SCH ×2 (02:15→08:41)
--- NOTE | 2022-01-09 08:08 | Postpartum Progress Note ---
Note Note Day # 2 Subjective: Patient is without complaints. Ambulating, voiding. Tolerating a regular diet without nausea or vomiting. Normal lochia. Pain is well controlled with oral pain medications. Objective: Physical Exam: General - Alert and oriented, no apparent distress Abdomen - Soft, appropriately tender to palpation, non-distended, fundus firm at umbilicus Extremities - no edema, negative Everton's bilaterally Assessment: PPD 2 NVD Acute blood loss anemia Plan: Routine care. Encourage breast feeding. Encourage ambulation. Ferrous sulfate supplementation. Plan for discharge today Vitals - Labs Vital Signs - I&O Vital Signs Date Time Temp Pulse Resp B/P (MAP) Pulse Ox O2 Delivery O2 Flow Rate FiO2 01/09/22 02:15 36.6 63 18 122/64 (83) 100 Room Air 01/08/22 20:45 36.6 82 18 119/60 (79) 100 Room Air 01/08/22 15:25 37.2 76 18 111/56 (74) 97 Room Air 01/08/22 09:15 36.6 71 18 125/70 (88) 100 Room Air Labs Microbiology 01/07/22 Urine Culture - Final, Complete Gram Pos Mixed Bacterial Katty HAILE POLK DO Jan 09, 2022 08:08
--- NOTE | 2022-01-09 08:25 | Discharge Inst-Women's Service ---
Discharge Inst-Women's Serv Depart Medication/Instructions New, Converted or Re-Newed RX: Transmitted to Pharmacy Final Diagnosis PPD 2 NVD Problems Reviewed?: Yes Consults/Follow Up Additional Follow Up: Yes Orders/Referrals Dr. Polk in 6 weeks Activity Activity: Activity as Tolerated Driving Instructions: No Driving for 1 Week NO SMOKING: NO SMOKING Nothing Inside Vagina: No Douching, No Imbler, No Tampons Diet Discharge Diet: No Restrictions Symptoms to Report to : Bleeding Excessive, Pain Increased, Fever Over 101 Degrees F, Vaginal Bleeding Increase, Questions/Concerns For Any Problems or Questions: Contact Your Physician HAILE POLK DO Jan 09, 2022 08:25
[2022-01-09] MEDS ORDERED: BENZ78AE5 TP ×2 (08:27)
[2022-01-09] MEDS ORDERED: DOCU100C37 PO ×2 (08:27)
[2022-01-09] MEDS ORDERED: IBUP-844 PO ×2 (08:27)
[2022-01-09] MEDS ORDERED: DIBU30OI TOP ×2 (08:27)
[2022-01-09 08:39] VITALS: BP 109/64
[2022-01-09] MEDS: FERROUS SULF 325 MG (IRON) TAB PO SCH (08:41)
[2022-01-09] MEDS: PRENATAL VITAMIN 1 EA TAB PO SCH (08:41)
[2022-01-09] MEDS: DOCUSATE SODIUM 100 MG (COLACE) CAP PO SCH (08:41)
== END 2022-01-09 10:10 | disposition home or self-care (01) | DRG 806 ==
LOC: LDRP 07:27
PROVIDERS: ADMIT Obstetrics & Gynecology; ATTEND Obstetrics & Gynecology
PROC: 10E0XZZ Delivery of Products of Conception, External Approach (ICD-10-PCS; principal; 2022-01-07)
PROC: 0HQ9XZZ Repair Perineum Skin, External Approach (ICD-10-PCS; 2022-01-07)
PROC: 10907ZC Drainage of Amniotic Fluid, Therapeutic from Products of Conception, Via Natural or Artificial Opening (ICD-10-PCS; 2022-01-07)
DX: O99.824 Streptococcus B carrier state complicating childbirth (principal); D62 Acute posthemorrhagic anemia; Z37.0 Single live birth; Z3A.39 39 weeks gestation of pregnancy; O70.0 First degree perineal laceration during delivery; O90.81 Anemia of the puerperium; Z88.1 Allergy status to other antibiotic agents; Z88.5 Allergy status to narcotic agent; Z88.2 Allergy status to sulfonamides; Z88.8 Allergy status to other drugs, medicaments and biological substances
CPT/HCPCS: 36415; 81000; 85025; 86850; 86900; 86901; 87088